=== PATIENT | male | born 1995 | race Caucasian/White ===

== ENCOUNTER 2023-10-22 09:22 | Emergency (ER) | payer OTHER ==
[~2023-10-22] VITALS: Ht 152.4 cm; Wt 36.3 kg
== END 2023-10-22 14:48 | disposition home or self-care (01) ==
LOC: ER 09:22
DX: S50.311A Abrasion of right elbow, initial encounter (principal); W01.0XXA Fall on same level from slipping, tripping and stumbling without subsequent striking against object, initial encounter; Y93.89 Activity, other specified; Y92.480 Sidewalk as the place of occurrence of the external cause